=== PATIENT | male | born 1990 | race Caucasian/White ===

== ENCOUNTER 2019-03-06 07:54 | Emergency (ER) | payer OTHER ==
[~2019-03-06] VITALS: Ht 177.8 cm; Wt 65.9 kg
[2019-03-06 08:04] VITALS: Ht 177.8 cm; Wt 65.9 kg
[2019-03-06 09:30] VITALS: BP 116/74
== END 2019-03-06 09:31 | disposition home or self-care (01) ==
LOC: D.ER 07:54
DX: F41.9 Anxiety disorder, unspecified (principal)